=== PATIENT | female | born 1960 | race Two or more races ===

== ENCOUNTER → 2016-05-15 | Outpatient (CLI) | payer MEDICAID | LOC: BRMIMAGING 12:49 | PROVIDERS: ATTEND Registered Nurse | DX: Z12.31 Encounter for screening mammogram for malignant neoplasm of breast (principal) | CPT/HCPCS: G0202 ==

== ENCOUNTER → 2016-05-20 | Outpatient (CLI) | payer MEDICAID | LOC: BRMIMAGING 11:27 | PROVIDERS: ATTEND Registered Nurse | DX: R93.2 Abnormal findings on diagnostic imaging of liver and biliary tract (principal); K76.0 Fatty (change of) liver, not elsewhere classified | CPT/HCPCS: 76705-PO ==

== ENCOUNTER → 2016-05-31 | Outpatient (CLI) | payer MEDICAID | LOC: BRMIMAGING 09:17 | DX: N64.9 Disorder of breast, unspecified (principal) | CPT/HCPCS: 76641-PO; G0206 ==